=== PATIENT | female | born 1995 | race Hispanic/Latino ===

== ENCOUNTER 2022-06-27 19:39 | Outpatient (CLI) | payer OTHER ==
[~2022-06-27] VITALS: Ht 172.7 cm; Wt 98.4 kg
[2022-06-27] MEDS ORDERED: CLAR1TAB13 PO (20:10)
[2022-06-27] MEDS ORDERED: PRENTAB9 PO ×2 (20:10)
[2022-06-27] MEDS ORDERED: LACTATED RINGER'S 1000 ML IV STA (22:58)
[2022-06-27] MEDS ORDERED: LR 1,000 ML IV SCH (23:00)
[2022-06-27] MEDS ORDERED: LIDOCAINE 1% MDV 20ML VIAL INFIL PRN (23:00)
[2022-06-27] MEDS ORDERED: OXYTOCIN DRIP 30 UNITS in IV 1 EA IV PRN ×4 (23:00)
[2022-06-27] MEDS ORDERED: CARBOPROST TROMETHAMINE 250 MCG/ML AMP IM PRN (23:00)
[2022-06-27] MEDS ORDERED: METHYLERGONOVINE MALEATE 0.2 MG/ML VIAL (J2210) IM PRN (23:00)
[2022-06-27] MEDS ORDERED: TRANEXAMIC ACID INJection 1,000 MG in NS 100 ML IV PRN (23:00)
[2022-06-27] MEDS ORDERED: OXYTOCIN INJ 10 UNITS/ML VIAL (J2590) IM PRN (23:00)
[2022-06-28] VITALS (11 sets, daily range): BP systolic 108–140; BP diastolic 52–80
[2022-06-28] MEDS: BUTORPHANOL 2 MG/ML INJ (J0595) IV PRN ×2 (00:24→03:36)
[2022-06-28 00:29] LABS: HEMATOCRIT 37.9 % (36.0-47.0); HEMOGLOBIN 12.9 g/dl (12.0-15.5); MEAN CORPUSCULAR HEMOGLOBIN 31.4 pg (27.0-33.0); MEAN CORPUSCULAR VOLUME 92.2 fl (80.0-96.0); PLATELET COUNT, AUTOMATED 261 10^3/uL (150-450); RED BLOOD COUNT 4.11 10^6/uL (4.00-5.40); WHITE BLOOD COUNT 16.6 10^3/uL (4.0-10.0)
== END 2022-06-28 07:10 | disposition home or self-care (01) ==
LOC: M LDO 19:39 → UNDOADMIN 22:54 → M LDI 22:54 → M LDO 06-28 07:10
PROVIDERS: ATTEND Obstetrics & Gynecology
DX: O24.410 Gestational diabetes mellitus in pregnancy, diet controlled (principal); Z3A.40 40 weeks gestation of pregnancy; O47.1 False labor at or after 37 completed weeks of gestation
CPT/HCPCS: 59025; 85027; 86780; 86850; 86900; 86901; G0378; G0463; J0595

== ENCOUNTER 2022-06-28 15:02 | Inpatient (IN) | payer OTHER ==
[2022-06-28] VITALS (31 sets, daily range): BP systolic 89–135; BP diastolic 52–90
[~2022-06-28] VITALS: Ht 172.7 cm; Wt 98.0 kg
[~2022-06-28 15:02] MED LIST: CLAR1TAB13 PO; PRENTAB9 PO
[2022-06-28] MEDS ORDERED: HOME MED LIST COMPLETE! XX SCH (15:20)
[2022-06-28] MEDS ORDERED: LACTATED RINGER'S 1000 ML IV STA (17:43)
[2022-06-28] MEDS ORDERED: LR 1,000 ML IV SCH (17:45)
[2022-06-28] MEDS ORDERED: LIDOCAINE 1% MDV 20ML VIAL INFIL PRN (17:45)
[2022-06-28] MEDS ORDERED: OXYTOCIN DRIP 30 UNITS in IV 1 EA IV PRN ×6 (17:45)
[2022-06-28] MEDS ORDERED: TRANEXAMIC ACID INJection 1,000 MG in NS 100 ML IV PRN (17:45)
[2022-06-28] MEDS ORDERED: CARBOPROST TROMETHAMINE 250 MCG/ML AMP IM PRN (17:45)
[2022-06-28] MEDS ORDERED: METHYLERGONOVINE MALEATE 0.2 MG/ML VIAL (J2210) IM PRN (17:45)
[2022-06-28] MEDS ORDERED: OXYTOCIN DRIP 30 UNITS in IV 1 EA IV SCH (17:45)
[2022-06-28] MEDS ORDERED: OXYTOCIN INJ 10 UNITS/ML VIAL (J2590) IV PRN (17:45)
[2022-06-28] MEDS ORDERED: OXYTOCIN INJ 10 UNITS/ML VIAL (J2590) IM PRN (17:45)
[2022-06-28] MEDS: LR 1,000 ML IV SCH ×2 (18:18→22:42)
[2022-06-28 18:21] LABS: HEMATOCRIT 38.6 % (36.0-47.0); MEAN CORPUSCULAR HEMOGLOBIN 31.3 pg (27.0-33.0); MEAN CORPUSCULAR HGB CONC 33.7 g/dl (32.0-36.5); MEAN CORPUSCULAR VOLUME 92.8 fl (80.0-96.0); PLATELET COUNT, AUTOMATED 301 10^3/uL (150-450); RED BLOOD COUNT 4.16 10^6/uL (4.00-5.40); WHITE BLOOD COUNT 14.3 10^3/uL (4.0-10.0)
[2022-06-28] MEDS ORDERED: NALOXONE INJ 0.4MG/1ML VIAL (J2310 PER 1MG) IV PRN (19:05)
[2022-06-28] MEDS ORDERED: FENTANYL/ROPIVACAINE/NACL BAG 100 ML EPIDURAL SCH (19:05)
[2022-06-28] MEDS ORDERED: ONDANSETRON 4MG 2ML VIAL IV PRN (19:05)
[2022-06-28] MEDS ORDERED: EPIDURAL/PCA KEYS XX PRN (19:05)
[2022-06-28] MEDS ORDERED: diphenhydrAMINE 50MG/ML VIAL (J1200) IV PRN (19:05)
[2022-06-28] MEDS ORDERED: LR 500 ML IV PRN (19:05)
[2022-06-28] MEDS: ePHEDrine SULFATE 25 MG/5 ML(5MG/ML) SYRINGE IVP PRN ×3 (21:18→22:44)
[2022-06-29] VITALS (21 sets, daily range): BP systolic 102–139; BP diastolic 56–99
[2022-06-29] MEDS ORDERED: MOM 30ML SUSPENSION UDC PO PRN (03:20)
[2022-06-29] MEDS ORDERED: IBUPROFEN 800 MG TAB PO PRN (03:20)
[2022-06-29] MEDS ORDERED: DOCUSATE SODIUM 100MG CAPSULE PO PRN (03:20)
[2022-06-29] MEDS ORDERED: DIBUCAINE 1% OINTMENT 30GM TOP PRN (03:20)
[2022-06-29] MEDS ORDERED: METHYLERGONOVINE MALEATE 0.2 MG TAB PO PRN (03:20)
[2022-06-29] MEDS ORDERED: RHOGAM 300 MCG (1500 IU) INJ (J2790) IM SCH (03:20)
[2022-06-29] MEDS: PRENATAL VITAMINS CHEWABLE TABLET PO SCH (09:49)
[2022-06-29] MEDS: ACETAMINOPHEN 500 MG TAB PO PRN ×2 (12:36→20:20)
[2022-06-30 06:23] VITALS: BP 114/65
[2022-06-30] MEDS ORDERED: COLA100C5 PO (06:50)
[2022-06-30] MEDS ORDERED: PRENCHW PO (06:50)
[2022-06-30] MEDS ORDERED: IBUP80TA PO (06:50)
[2022-06-30] MEDS: PRENATAL VITAMINS CHEWABLE TABLET PO SCH (09:05)
[2022-06-30] MEDS: ACETAMINOPHEN 500 MG TAB PO PRN (09:06)
[2022-06-30 18:00] VITALS: BP 122/70
[2022-07-01 06:00] VITALS: BP 110/56
[2022-07-01] MEDS ORDERED: MEASLES,MUMPS,RUBELLA VACCINE INJ (MMR-II) (90707) SC.IMMUN ONE (09:00)
== END 2022-06-30 18:00 | disposition home or self-care (01) | DRG 807 ==
LOC: M LDO 15:02 → M LDI 17:45 → M OBS 06-29 05:34
PROVIDERS: ADMIT Obstetrics & Gynecology; ATTEND Obstetrics & Gynecology
PROC: 10E0XZZ Delivery of Products of Conception, External Approach (ICD-10-PCS; principal; 2022-06-29)
DX: O24.420 Gestational diabetes mellitus in childbirth, diet controlled (principal); Z37.0 Single live birth; Z3A.40 40 weeks gestation of pregnancy